=== PATIENT | female | born 1995 | race Two or more races ===

== ENCOUNTER 2016-08-23 06:43 | Emergency (ER) | payer OTHER ==
[~2016-08-23 06:43] MED LIST: FLEXERIL PO; IBUPROFEN PO
[2016-08-23] MEDS ORDERED: RITALIN PO (06:59)
[2016-08-23] MEDS ORDERED: FLONASE 0.05% N16 G1 INH (07:00)
== END 2016-08-23 07:50 | disposition home or self-care (01) ==
LOC: SED 06:43
DX: J01.00 Acute maxillary sinusitis, unspecified (principal)
CPT/HCPCS: 87651; 99282